=== PATIENT | female | born 1985 | race Caucasian/White ===

== ENCOUNTER 2018-01-02 17:46 | Emergency (ER) | payer OTHER ==
[~2018-01-02] VITALS: Ht 172.7 cm; Wt 88.9 kg
[2018-01-02] MEDS ORDERED: DELTASONE20 M1 PO (19:20)
[2018-01-02] MEDS ORDERED: EPIPEN ADU0.3 MG/0.3 IM (19:20)
[2018-01-02 20:01] VITALS: BP 124/55
== END 2018-01-02 20:02 | disposition home or self-care (01) ==
LOC: EME 17:46
DX: T78.40XA Allergy, unspecified, initial encounter (principal); Z91.018 Allergy to other foods; F41.9 Anxiety disorder, unspecified; F32.9 Major depressive disorder, single episode, unspecified; Z87.891 Personal history of nicotine dependence
CPT/HCPCS: 99281; 99283; J7512